=== PATIENT | female | born 2000 | race Caucasian/White ===

== ENCOUNTER 2022-01-13 23:23 | Emergency (ER) | payer SELFPAY ==
[~2022-01-13] VITALS: Ht 157.5 cm; Wt 52.4 kg
[2022-01-14 01:59] LABS: CHLORIDE 107 mEq/L (98-107)
[2022-01-14 02:01] LABS: HEMATOCRIT. 34.7 % (36.0-48.0); HEMOGLOBIN. 11.1 g/dL (12.0-16.0); MEAN CORPUSCULAR HEMOGLOBIN 27.3 pg (28.0-32.0); MEAN CORPUSCULAR VOLUME 85.3 fL (81.0-99.0); MEAN PLATELET VOLUME 10.6 fl (7.4-10.4); PLATELET 198 x1000/uL (130-400); RED BLOOD CELL COUNT 4.07 mill/uL (4.2-5.4); RED CELL DISTRIBUTION WIDTH 14.5 % (11.6-14.6)
[2022-01-14] MEDS: KETOROLAC 60MG/2ML VIAL IM ONE (03:01)
[2022-01-14 03:07] LABS: CLARITY URINE CLOUDY (CLEAR); COLOR URINE YELLOW (YELLOW); KETONES URINE TRACE (NEGATIVE); LEUKOCYTE ESTERASE URINE NEGATIVE (NEGATIVE); NITRITE URINE NEGATIVE (NEGATIVE); OCCULT BLOOD URINE NEGATIVE (NEGATIVE); PROTEIN URINE TRACE (NEGATIVE); SPECIFIC GRAVITY URINE 1.034 (1.005-1.030); UROBILINOGEN URINE 0.2 E.U./dL (0.2-1.0)
[2022-01-14 05:23] VITALS: BP 126/71
[2022-01-14] MEDS: HYDROCODONE/ACETAMINOPHEN 5/325MG TABLET PO ONE (05:23)
[2022-01-14 05:30] LABS: PLATELET ESTIMATE NORMAL
== END 2022-01-14 05:25 | disposition home or self-care (01) ==
LOC: ER 23:23
DX: R10.2 Pelvic and perineal pain (principal)
CPT/HCPCS: 36415; 80053; 81003; 81025; 83690; 85025; 96372; 99283; J1885